=== PATIENT | female | born 1950 ===

== ENCOUNTER 2022-08-02 05:36 | Emergency (ER) | payer MEDICARE ==
[2022-08-02] MEDS ORDERED: Diltiazem 25 MG/5 ML SDV IVPUSH ONE (05:46)
[2022-08-02] MEDS: Sodium Chloride 0.9% 10 ML Syringe FLUSH PRN ×2 (05:50→06:37)
[2022-08-02 05:56] LABS: BASOPHILS PERCENT AUTO 0.3 % (0.0-1.0); EOSINOPHILS PERCENT AUTO 2.1 % (1.0-3.0); HEMATOCRIT 41.3 % (37.0-47.0); LYMPHOCYTES PERCENT AUTO 38.5 % (20.5-50.1); MEAN CORPUSCULAR HEMOGLOBIN 31.6 pg (27.0-34.0); MEAN CORPUSCULAR HGB CONC 33.9 g/dL (33.0-35.0); MEAN CORPUSCULAR VOLUME 93.2 fL (80-100); MONOCYTES PERCENT AUTO 12.1 % (2-8); PLATELET COUNT,PLT 295 10^3/uL (150-450); RED BLOOD CELL COUNT 4.43 10^6/uL (4.2-5.4); WHITE BLOOD CELL COUNT,WBC 11.9 10^3/uL (5.0-10.0)
[2022-08-02] MEDS ORDERED: Diltiazem 125 MG in Sodium Chloride 0.9% 100 ML IV SCH (06:00)
[2022-08-02] MEDS ORDERED: Furosemide 40 MG/4 ML VIAL IVPUSH ONE (06:04)
[2022-08-02 06:15] LABS: PROTHROMBIN TIME 10.2 SEC (9.0-12.0); PTT,PARTIAL THROMBOPLSTIN TIME 28.1 SEC (22.0-34.0)
[2022-08-02 06:17] LABS: ALBUMIN 3.4 g/dL (3.4-5.0); ANION GAP 12.3 mEq/L (7-13); BILIRUBIN TOTAL 0.4 mg/dL (0.2-1.0); BUN/CREATININE RATIO 20.2 (No establ ref range); CALCIUM 8.5 mg/dL (8.5-10.1); CREATININE 0.89 mg/dL (0.55-1.02); EST CRCL DRUG DOSING (CG) 53.49 mL/min; MAGNESIUM 1.9 mg/dL (1.8-2.4); POTASSIUM,K 4.3 mmol/L (3.5-5.1); PROTEIN TOTAL,TP 6.7 g/dL (6.4-8.2)
[2022-08-02] MEDS ORDERED: Digoxin 500 MCG/2 ML Amp IVPUSH ONE (06:31)
== END 2022-08-02 08:17 | disposition home or self-care (01) ==
LOC: DL.ED 05:36
DX: I48.91 Unspecified atrial fibrillation (principal); E87.70 Fluid overload, unspecified; Z88.2 Allergy status to sulfonamides; Z79.01 Long term (current) use of anticoagulants
CPT/HCPCS: 36415; 71045; 80053; 83735; 83880; 84484; 85025; 85610; 85730; 93005; 93010; 96365; 96366; 96375; 96376; 99285; 99285-25; J1160; J1940; J3490